=== PATIENT | male | born 1985 | race Two or more races ===

== ENCOUNTER 2024-04-01 19:31 | Emergency (ER) | payer OTHER ==
[~2024-04-01] VITALS: Ht 167.6 cm; Wt 90.7 kg
[2024-04-01] MEDS ORDERED: HYDROXYCHLOROQ200 MG (19:37)
[2024-04-01] MEDS ORDERED: CLONAZEPAM2 M1 (19:38)
[2024-04-01] MEDS ORDERED: COZAAR50 MG (19:38)
[2024-04-01] MEDS ORDERED: CYMBALTA60 MG PO (19:39)
[2024-04-01] MEDS ORDERED: METHYLPREDNISOLONE SOD SUCC 125 MG VIAL IV STA (20:52)
[2024-04-01 21:20] LABS: HEMATOCRIT 45.7 % (39.0-48.0); MEAN CELL VOLUME 88.7 fL (80.0-100.00); MEAN CORPUSCULAR HEMOGLOBIN 31.1 pg (27.00-32.0); PLATELET COUNT 293 K/uL (150-450); RED BLOOD COUNT 5.16 M/uL (4.00-6.00); RED CELL DISTRIBUTION WIDTH 13.1 % (11.5-14.5)
[2024-04-01 21:27] LABS: ERYTHROCYTE SEDIMENTATION RATE 4 mm/hr
[2024-04-01 21:55] LABS: ALBUMIN 3.9 gm/dL (3.4-5.0); BILIRUBIN TOTAL 0.37 mg/dL (0.3-1.2); CALCIUM 9.6 mg/dL (8.5-10.1); CREATININE SERUM 1.05 mg/dL (0.70-1.30); GFR 79.48; GLOBULINA 3.5 G/DL (2.4-3.5); POTASSIUM 4.49 mEq/L (3.5-5.1); TOTAL PROTEIN 7.4 gm/dL (6.4-8.2)
[2024-04-01 21:57] LABS: C-REACTIVE PROTEIN 3.5 MG/DL (0.00-0.29)
[2024-04-01 22:01] LABS: PH,URINE 6.5 (5.0-8.0); URINE APPEARANCE Clear; URINE BILIRRUBIN Negative (NEGATIVE); URINE BLOOD Negative; URINE COLOR Yellow; URINE GLUCOSE Negative (NEGATIVE); URINE KETONE Trace (NEGATIVE); URINE LEUKOCYTE Negative; URINE NITRATE Negative; URINE PROTEIN Negative (NEGATIVE)
[2024-04-01 22:04] LABS: URINE BACTERIA 7.5 uL (0.0-1933); URINE RBC 20.6 uL (0.0-20.8)
[2024-04-01 22:15] LABS: URINE CAST 0.15 uL (0.0-1.40); URINE EPITHELIAL CELLS 0.6 uL (0.0-38.8); URINE WBC 1.6 uL (0.0-23.2)
[2024-04-01] MEDS ORDERED: LEVOFLOXACIN750 MG PO (23:12)
[2024-04-01] MEDS ORDERED: HYDROXYCHLOROQ200 MG PO (23:12)
[2024-04-01] MEDS ORDERED: FAMOtidine 20 MG TABLET PO STA (23:21)
== END 2024-04-02 00:20 | disposition home or self-care (01) ==
LOC: ER 19:32
PROVIDERS: General Practice
DX: R53.81 Other malaise (principal); R53.83 Other fatigue; L02.91 Cutaneous abscess, unspecified